=== PATIENT | male | born 1975 | race Two or more races ===

== ENCOUNTER → 2020-08-28 | Day surgery (SDC) | payer OTHER ==
[~2020-08-28] MED LIST: COLACE100 MG PO; COZAAR50 MG PO; LEXAPRO5 MG; PERCOCET 5-3251 EACH PO
== END | disposition home or self-care (01) ==
LOC: ADM 08-25 09:15 → CIR.AMB 09:15
PROVIDERS: ATTEND Surgery
DX: K62.0 Anal polyp (principal); K64.8 Other hemorrhoids; Z20.822 Contact with and (suspected) exposure to COVID-19